=== PATIENT | female | born 1940 | race Caucasian/White ===

== ENCOUNTER → 2016-04-08 | Outpatient (CLI) | payer MEDICARE ==
[2016-04-08 11:23] LABS: ALT 41 U/L (9-52); AST 20 U/L (14-36); Alkaline Phosphatase 118 U/L (38-126); Anion Gap 9 mmol/L; Blood Urea Nitrogen 15 mg/dL (7-17); Calcium 9.5 mg/dL (8.4-10.2); Carbon Dioxide 29 mmol/L (22-30); Chloride 104 mmol/L (98-107); Cholesterol 249 mg/dL (<200); Glucose 98 mg/dL (74-99); HDL Cholesterol 61 mg/dL (40-60); Non-African American GFR(MDRD) >60 (>60 ml/min/1.73 sqM); Potassium 4.3 mmol/L (3.5-5.1); Sodium 142 mmol/L (137-145); Total Bilirubin 0.8 mg/dL (0.2-1.3); Total Protein 6.6 g/dL (6.3-8.2); Triglycerides 167 mg/dL (<150)
== END | disposition home or self-care (01) ==
LOC: LABWHC1 10:38
PROVIDERS: ATTEND Internal Medicine Endocrinology, Diabetes & Metabolism
DX: E11.9 Type 2 diabetes mellitus without complications (principal); E26.9 Hyperaldosteronism, unspecified
CPT/HCPCS: 36415; 80053; 80061; 82043

== ENCOUNTER → 2016-06-21 | Outpatient (CLI) | payer MEDICARE ==
--- NOTE | 2016-06-21 12:16 | XR ---
EXAMINATION TYPE: XR chest 2V DATE OF EXAM: 06/21/2016 12:12 PM COMPARISON: Prior chest x-ray August 20, 2015. HISTORY: Cough for a few weeks. TECHNIQUE: Frontal and lateral views of the chest are obtained. FINDINGS: There is eventration and elevation of right hemidiaphragm redemonstrated. There is no foca l air space opacity, pleural effusion, or pneumothorax seen. The cardiac silhouette size is stable a nd upper limits of normal. Cholecystectomy clips are redemonstrated. There is some spurring in the lo wer thoracic spine noted. IMPRESSION: No acute pulmonary process.
== END ==
LOC: RADXRMAIN 12:02
PROVIDERS: ATTEND Internal Medicine
DX: R05 Cough (principal)
CPT/HCPCS: 71020

== ENCOUNTER → 2016-07-09 | Outpatient (CLI) | payer MEDICARE ==
[2016-07-09 09:14] LABS: ALT 34 U/L (9-52); AST 22 U/L (14-36); Alkaline Phosphatase 117 U/L (38-126); Anion Gap 9 mmol/L; Blood Urea Nitrogen 13 mg/dL (7-17); Calcium 9.6 mg/dL (8.4-10.2); Carbon Dioxide 26 mmol/L (22-30); Chloride 104 mmol/L (98-107); Glucose 104 mg/dL (74-99); Non-African American GFR(MDRD) >60 (>60 ml/min/1.73 sqM); Potassium 4.4 mmol/L (3.5-5.1); Sodium 139 mmol/L (137-145); Total Bilirubin 1.1 mg/dL (0.2-1.3); Total Protein 6.7 g/dL (6.3-8.2)
== END | disposition home or self-care (01) ==
LOC: LABWHC1 07:50
PROVIDERS: ATTEND Internal Medicine Endocrinology, Diabetes & Metabolism
DX: E26.9 Hyperaldosteronism, unspecified (principal)
CPT/HCPCS: 36415; 80053

== ENCOUNTER → 2016-10-29 | Outpatient (CLI) | payer MEDICARE ==
--- NOTE | 2016-10-29 09:39 | US ---
EXAMINATION TYPE: US liver DATE OF EXAM: 10/29/2016 COMPARISON: CT abdomen and pelvis May 13, 2014. CLINICAL HISTORY: R94.5 ABN LIVER FUNCTION TESTS. Elevated alkaline phosphatase, cholecystectomy EXAM MEASUREMENTS: Liver Length: 14.2 cm Gallbladder Wall: Surgically absent CBD: 0.3 cm Right Kidney: 10.4 x 4.3 x 5.0 cm Pancreas: tail obscured by overlying bowel content Liver: slightly heterogeneous Gallbladder: Surgically absent Evidence for sonographic Felipe's sign: no CBD: appears wnl Right Kidney: no evidence of hydronephrosis or mass Visualized pancreas is unremarkable. Visualized liver is heterogeneously hyperechoic without intrahep atic ductal dilatation. Evaluation for focal masses is suboptimal due to the heterogeneity. Gallbladd er once again demonstrated surgically absent. IMPRESSION: Heterogeneity of liver is present and could reflect product of diffuse fatty infiltration or underlying hepatocellular disease. Imaging guided random biopsy for tissue analysis can be perfor med if desired.
== END | disposition home or self-care (01) ==
LOC: RADUSWWP 08:39
PROVIDERS: ATTEND Internal Medicine
DX: R94.5 Abnormal results of liver function studies (principal)
CPT/HCPCS: 76705

== ENCOUNTER → 2016-11-05 | Outpatient (CLI) | payer MEDICARE ==
[2016-11-05 11:39] LABS: ALT 43 U/L (9-52); AST 29 U/L (14-36); Alkaline Phosphatase 135 U/L (38-126); Anion Gap 11 mmol/L; Blood Urea Nitrogen 14 mg/dL (7-17); Calcium 9.7 mg/dL (8.4-10.2); Carbon Dioxide 27 mmol/L (22-30); Chloride 103 mmol/L (98-107); Glucose 101 mg/dL (74-99); Non-African American GFR(MDRD) >60 (>60 ml/min/1.73 sqM); Potassium 4.4 mmol/L (3.5-5.1); Sodium 141 mmol/L (137-145); Total Bilirubin 0.9 mg/dL (0.2-1.3); Total Protein 6.4 g/dL (6.3-8.2)
== END | disposition home or self-care (01) ==
LOC: LABWHC1 09:21
PROVIDERS: ATTEND Internal Medicine Endocrinology, Diabetes & Metabolism
DX: E26.9 Hyperaldosteronism, unspecified (principal)
CPT/HCPCS: 36415; 80053

== ENCOUNTER → 2016-12-08 | Outpatient (CLI) | payer MEDICARE ==
[~2016-12-08] MED LIST: REGADENOSON 0.4 MG/5 ML SYRINGE IV ONE
--- NOTE | 2016-12-08 12:07 | NM ---
EXAMINATION TYPE: NM stress lexiscan cardiolite DATE OF EXAM: 12/08/2016 COMPARISON: NONE HISTORY: R07.9 chest pain TECHNIQUE: After the intravenous administration of 9.86 mCi Tc 99m Sestamibi - Cardiolite resting SP ECT images acquired 45 minutes post injection. The patient received 0.4mg Lexiscan, 29.3 mCi Tc 99m Sestamibi - Stress images obtained [address] injection FINDINGS: Review of stress and rest SPECT images demonstrates decreased perfusion involving the anterior wall o n stress images felt to reflect a mild degree of stress-induced ischemia. No wall motion abnormalitie s are seen. Estimated ejection fraction is approximately 61%. IMPRESSION: I cannot exclude a small area of stress-induced ischemia anterior wall.
--- NOTE | 2016-12-09 05:29 | EST ---
EXERCISE STRESS DATE OF SERVICE: 12/08/2016 AGE: 76 SEX: Female HT: 5'3" WT: 190 PROTOCOL: Lexiscan Cardiolite STAGE: DURATION OF EXERCISE: HEART RATE REST: 72 BLOOD PRESSURE REST: 140/65 MAXIMUM HEART RATE ACHIEVED: 102 MAXIMUM BLOOD PRESSURE: 148/79 85% MPHR: 123 100% MPHR: 145 METS: INDICATIONS: Chest pain. CLINICAL INFORMATION: This is a 76-year-old female. This is a Lexiscan Cardiolite stress test report. Baseline heart rate 72 beats per minute. Baseline blood pressure 140/65 mmHg. Baseline 12-lead ECG shows normal sinus rhythm and nonspecific ST-T abnormalities. The patient received Lexiscan infusion per protocol. There was no ECG evidence for ischemia. No arrhythmias were noted. Nuclear portion of the stress test will be reported separately. MMODL / IJN: [id number] /
== END | disposition home or self-care (01) ==
LOC: RADNMMAIN 08:56
PROVIDERS: ATTEND Internal Medicine
DX: R07.9 Chest pain, unspecified (principal)
CPT/HCPCS: 93017; 78452; A9500; J2785

== ENCOUNTER → 2016-12-15 | Outpatient (CLI) | payer MEDICARE ==
[2016-12-15 09:45] LABS: Basophils % (A) 0 %; CH 32.2; Eosinophils # (A) 0.2 k/uL (0-0.7); Eosinophils % (A) 2 %; HCT 44.9 % (34.0-46.0); HDW 2.48; HGB 14.3 gm/dL (11.4-16.0); Luc # (Auto) 0.09; Luc % (Auto) 1; Lymphocytes % (A) 14 %; MCH 31.2 pg (25.0-35.0); MCHC 31.8 g/dL (31.0-37.0); MCV 98.1 fL (80.0-100.0); Mean Platelet Volume 7.4; Monocytes # (A) 0.3 k/uL (0-1.0); Monocytes % (A) 5 %; Neutrophils # (A) 5.4 k/uL (1.3-7.7); Neutrophils % (A) 77 %; RBC 4.58 m/uL (3.80-5.40); RDW 15.1 % (11.5-15.5)
[2016-12-15 10:22] LABS: ALT 34 U/L (9-52); AST 20 U/L (14-36); Alkaline Phosphatase 130 U/L (38-126); Anion Gap 10 mmol/L; Blood Urea Nitrogen 11 mg/dL (7-17); Calcium 9.4 mg/dL (8.4-10.2); Carbon Dioxide 27 mmol/L (22-30); Chloride 104 mmol/L (98-107); Glucose 104 mg/dL (74-99); Non-African American GFR(MDRD) >60 (>60 ml/min/1.73 sqM); Potassium 4.3 mmol/L (3.5-5.1); Sodium 141 mmol/L (137-145); Total Bilirubin 0.7 mg/dL (0.2-1.3); Total Protein 6.4 g/dL (6.3-8.2)
== END | disposition home or self-care (01) ==
LOC: LABWHC1 09:07
PROVIDERS: ATTEND Internal Medicine Gastroenterology
DX: R74.8 Abnormal levels of other serum enzymes (principal)
CPT/HCPCS: 36415; 80053; 83516; 84080; 85025; 86038

== ENCOUNTER → 2017-03-22 | Outpatient (CLI) | payer MEDICARE ==
[2017-03-22 10:52] LABS: ALT 40 U/L (9-52); AST 19 U/L (14-36); Albumin 3.9 g/dL (3.5-5.0); Alkaline Phosphatase 114 U/L (38-126); Anion Gap 9 mmol/L; Blood Urea Nitrogen 17 mg/dL (7-17); Calcium 9.7 mg/dL (8.4-10.2); Carbon Dioxide 30 mmol/L (22-30); Chloride 101 mmol/L (98-107); Cholesterol 143 mg/dL (<200); Glucose 108 mg/dL (74-99); HDL Cholesterol 51 mg/dL (40-60); LDL Cholesterol,Calculated 50 mg/dL (0-99); Potassium 4.5 mmol/L (3.5-5.1); Sodium 140 mmol/L (137-145); Total Bilirubin 0.6 mg/dL (0.2-1.3); Total Protein 6.5 g/dL (6.3-8.2); Triglycerides 212 mg/dL (<150)
== END | disposition home or self-care (01) ==
LOC: LABWHC1 09:20
PROVIDERS: ATTEND Internal Medicine Interventional Cardiology
DX: E78.2 Mixed hyperlipidemia (principal); E26.9 Hyperaldosteronism, unspecified
CPT/HCPCS: 36415; 80053; 80061

== ENCOUNTER → 2017-08-01 | Outpatient (CLI) | payer MEDICARE ==
[2017-08-01 08:33] LABS: Albumin 4.1 g/dL (3.5-5.0); Calcium 9.7 mg/dL (8.4-10.2); Potassium 4.8 mmol/L (3.5-5.1); Total Bilirubin 0.7 mg/dL (0.2-1.3); Total Protein 6.4 g/dL (6.3-8.2)
== END | disposition home or self-care (01) ==
LOC: LABWHC1 07:48
PROVIDERS: ATTEND Internal Medicine Endocrinology, Diabetes & Metabolism
DX: E26.9 Hyperaldosteronism, unspecified (principal)
CPT/HCPCS: 36415; 80053

== ENCOUNTER 2017-08-18 02:27 | Emergency (ER) | payer MEDICARE ==
[2017-08-18] MEDS ORDERED: SODIUM CHLORIDE 0.9% 1,000 ML BAG ONE (02:30)
[2017-08-18] MEDS ORDERED: PIPERACILLIN-TAZO 3.375 GM/50 ML PMX BAG ONE (02:47)
[2017-08-18] MEDS ORDERED: FUROSEMIDE 10 MG/ML 10 ML VIAL ONE (02:47)
[2017-08-18] MEDS ORDERED: PROPOFOL 10 MG/ML 100 ML VIAL IV ONE (02:47)
[2017-08-18] MEDS ORDERED: SUCCINYLCHOLINE CHLORIDE VIAL 200 MG/10 ML VIAL IV ONE (02:47)
[2017-08-18] MEDS ORDERED: ETOMIDATE 2 MG/ML 10 ML VIAL ONE (02:47)
[2017-08-18] MEDS ORDERED: LABETALOL 5 MG/ML VIAL MDV ONE (02:47)
[2017-08-18 06:30] LABS: Basophils # (A) 0.1 k/uL (0-0.2); Basophils % (A) 0 %; Eosinophils # (A) 0.2 k/uL (0-0.7); Eosinophils % (A) 1 %; HGB 14.2 gm/dL (11.4-16.0); Hypochromasia Slight; Lymphocytes # (A) 3.6 k/uL (1.0-4.8); Lymphocytes % (A) 18 %; MCH 30.3 pg (25.0-35.0); MCHC 31.5 g/dL (31.0-37.0); MCV 96.1 fL (80.0-100.0); Monocytes # (A) 0.7 k/uL (0-1.0); Monocytes % (A) 4 %; Neutrophils # (A) 14.8 k/uL (1.3-7.7); Neutrophils % (A) 75 %; Platelet Count 267 k/uL (150-450); RBC 4.68 m/uL (3.80-5.40); RDW 15.3 % (11.5-15.5); WBC 19.7 k/uL (3.8-10.6)
[2017-08-18 06:36] LABS: ABG Base Excess -0.5 mmol/L; ABG HCO3 26 mmol/L (21-25); ABG PCO2 52 mmHg (35-45); ABG PH 7.31 (7.35-7.45); ABG PO2 >400 mmHg (83-108); ABG TCO2 27 mmol/L (19-24)
[2017-08-18 06:37] LABS: Prothrombin Time 9.9 sec (9.0-12.0)
[2017-08-18 06:39] LABS: D-Dimer 1.55 mg/L FEU (<0.60)
[2017-08-18 06:50] LABS: Albumin 4.4 g/dL (3.5-5.0); Calcium 9.5 mg/dL (8.4-10.2); Magnesium 1.8 mg/dL (1.6-2.3); Phosphorus 5.8 mg/dL (2.5-4.5); Potassium 4.7 mmol/L (3.5-5.1); Total Bilirubin 0.4 mg/dL (0.2-1.3); Total Protein 6.8 g/dL (6.3-8.2)
[2017-08-18 06:53] LABS: Creatine Kinase 104 U/L (30-135); Creatine Kinase MB 0.3 ng/mL (0.0-2.4); Troponin I <0.012 ng/mL (0.000-0.034)
--- NOTE | 2017-08-18 07:02 | CT ---
EXAM: CT Head Without Intravenous Contrast CLINICAL HISTORY: unresponsive, DLP: 1144.70 TECHNIQUE: Axial computed tomography images of the head/brain without intravenous contrast. CTDI is 60.3 mGy and DLP is 1144.7 mGy-cm. This CT exam was performed using one or more of the following dose reduction techniques: automated exposure control, adjustment of the mA and/or kV according to patient size, and/or use of iterative reconstruction technique. COMPARISON: No relevant prior studies available. 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 Suspect small subarachnoid hemorrhage in the posterior fossa. Involutional changes, probable small vessel disease, and remote appearing lacunar infarct. No evidence of acute cortical infarct. No midline shift. Ventricles: No significant hydrocephalus. Bones/joints: Unremarkable. Soft tissues: Unremarkable. Sinuses: Minimal sinus disease. Mastoid air cells: Unremarkable as visualized. Nasopharynx: Fluid in the posterior nasopharynx. 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 Suspect small subarachnoid hemorrhage in the posterior fossa. [employer] 08/18/17 03:18 Call Doctor Regarding Above results, called Dr. Wheeler on 08/18 03:18 (-04:00)
--- NOTE | 2017-08-18 07:02 | XR ---
EXAM: XR Chest, 1 View CLINICAL HISTORY: unresponsive, post intubation TECHNIQUE: Frontal view of the chest. COMPARISON: 01/15/2017. FINDINGS: Lungs: Low lung volumes with prominent pulmonary vascularity. Patchy lung opacities may represent atelectasis or developing infiltrate. Pleural space: Unremarkable. No pneumothorax. Heart: Stable cardiomediastinal silhouette. Mediastinum: See above. Bones/joints: Sternotomy wires again noted. Tubes, lines and devices: Endotracheal tube terminates above the yadiel. Feeding tube appears to be looped in the stomach, incompletely imaged. IMPRESSION: 1. Low lung volumes with prominent pulmonary vascularity. Patchy lung opacities may represent atelectasis or developing infiltrate. 2. Tubes and lines, as above.
== END 2017-08-18 04:19 | disposition other institution (70) ==
LOC: EC 02:27
DX: I63.9 Cerebral infarction, unspecified (principal); J69.0 Pneumonitis due to inhalation of food and vomit; I10 Essential (primary) hypertension; I25.2 Old myocardial infarction; Z88.1 Allergy status to other antibiotic agents; Z88.5 Allergy status to narcotic agent; Z88.2 Allergy status to sulfonamides; Z91.048 Other nonmedicinal substance allergy status; Z95.1 Presence of aortocoronary bypass graft
CPT/HCPCS: 31500; 36415; 36600; 70450; 71045; 80053; 82550; 82553; 82805; 83605; 83735; 83880; 84100; 84484; 85025; 85379; 85610; 85730; 87040; 93005; 94002; 96365; 96366; 96375; 99291